=== PATIENT | female | born 1980 | race Hispanic/Latino ===

== ENCOUNTER 2017-02-23 16:33 | Emergency (ER) | payer OTHER ==
[~2017-02-23] VITALS: Ht 152.4 cm; Wt 92.6 kg
[~2017-02-23 16:33] MED LIST: CIPROFLOXACN500 MG PO; NAPROSYN500 MG PO; PRE-NATAL OR; ULTRAM50 M1 PO
[2017-02-23] MEDS ORDERED: AMOXICILLIN500 M2 PO (17:43)
[2017-02-23] MEDS ORDERED: CORTISPORIN11 AS (17:43)
[2017-02-23 18:20] VITALS: BP 147/88
== END 2017-02-23 18:20 | disposition home or self-care (01) | DRG 153 ==
LOC: ED 16:33
DX: H66.92 Otitis media, unspecified, left ear (principal); H60.502 Unspecified acute noninfective otitis externa, left ear; H92.02 Otalgia, left ear